=== PATIENT | female | born 1995 | race Caucasian/White ===

== ENCOUNTER 2017-12-19 14:05 | Inpatient (IN) | payer OTHER ==
[~2017-12-19] VITALS: Ht 170.2 cm; Wt 62.6 kg
[2017-12-19 14:55] LABS: ABSOLUTE BASOPHIL COUNT 0.1 /CUMM (0.0-0.2); ABSOLUTE EOSINOPHIL COUNT 0.1 /CUMM (0.0-0.7); ABSOLUTE GRANULOCYTE CT 6.7 /CUMM (1.4-6.5); ABSOLUTE MONOCYTE COUNT 0.7 /CUMM (0.10-0.60); EOSINOPHIL % 0.6 % (0-5); GRANULOCYTE % 70.1 % (42.2-75.2); HEMATOCRIT 34.6 % (37-47); MEAN CORPUSCULAR HGB 31.7 PG (27.0-31.0); MEAN CORPUSCULAR HGB CONC 33.7 G/DL (33.0-37.0); MEAN CORPUSCULAR VOLUME 93.9 FL (81.0-99.0); PLATELET COUNT 150 /CUMM (130-400); RBC DISTRIBUTION WIDTH 13.2 % (11.5-14.5); RED BLOOD CELL CT 3.69 /CUMM (4.20-5.40); WHITE BLOOD CELL COUNT 9.5 /CUMM (4.8-10.8)
[2017-12-25 08:11] VITALS: BP 128/81
[2017-12-25] MEDS ORDERED: PRENATAL TABLE1 EAC2 PO (08:13)
[2017-12-25 08:44] LABS: ABSOLUTE BASOPHIL COUNT 0.1 /CUMM (0.0-0.2); ABSOLUTE EOSINOPHIL COUNT 0.1 /CUMM (0.0-0.7); ABSOLUTE GRANULOCYTE CT 4.7 /CUMM (1.4-6.5); ABSOLUTE LYMPH COUNT 2.4 /CUMM (1.2-3.4); ABSOLUTE MONOCYTE COUNT 0.6 /CUMM (0.10-0.60); BASOPHIL % 1.4 % (0.0-2.0); EOSINOPHIL % 1.1 % (0-5); GRANULOCYTE % 59.4 % (42.2-75.2); MEAN CORPUSCULAR HGB 32.2 PG (27.0-31.0); MEAN CORPUSCULAR HGB CONC 34.8 G/DL (33.0-37.0); MEAN CORPUSCULAR VOLUME 92.6 FL (81.0-99.0); PLATELET COUNT 129 /CUMM (130-400); RBC DISTRIBUTION WIDTH 12.6 % (11.5-14.5); RED BLOOD CELL CT 3.67 /CUMM (4.20-5.40)
--- NOTE | 2017-12-25 09:50 | History & Physical ---
General Information and HPI MD Statement: I have seen and personally examined SAUL LAI and documented this H&P. The patient is a 22 year old female at [41] weeks and [1] days gestation who presented with a chief complaint of [IOL]. Source of Information: patient Exam Limitations: no limitations History of Present Illness: 22yo, 41 1/7wks, here for IOL due to postdates. she c/o occasional abdominal tightening, debies any pain or VB or LOF, reports GFM. care started at 7+ wks, uncomplicated thus far. GBS positive. Allergies/Medications Allergies: Coded Allergies: Penicillins (Intermediate, HIVES 12/19/17) gluten (ABDOMINAL PAIN 12/25/17) lactase (From [facility]) (HIVES 12/25/17) Home Med list Vit No.130/Iron/FA ( Tablet) 27 MG IRON-800 MCG TABLET 1 TAB PO DAILY (Reported) Compliance With Home Meds: GOOD Past History rn clinical coordinator History : 1 Para: 0 Last Menstrual Period: unknown Estimated Delivery Date: 12/17/2017 Past rn clinical coordinator History: none Medical History Blood Transfusion Hx: No Neurological: NONE EENT: NONE Cardiovascular: NONE Respiratory: NONE Gastrointestinal: celiac disease Hepatic: NONE Renal: NONE Musculoskeletal: NONE Psychiatric: NONE Endocrine: NONE Blood Disorders: NONE Cancer(s): NONE COMMUNICATIONS LEAD/Reproductive: NONE Surgical History Pertinent Surgical History: tonsillectomy 2012 Past Family/Social History Psychosocial History Where do you live? Home Smoking Status: Never Smoked ETOH Use: denies use Illicit Drug Use: denies illicit drug use Review of Systems Review of Systems Constitutional: Reports: no symptoms. EENTM: Reports: no symptoms. Cardiovascular: Reports: no symptoms. Respiratory: Reports: no symptoms. GI: Reports: no symptoms. Genitourinary: Reports: see HPI. Musculoskeletal: Reports: no symptoms. Skin: Reports: no symptoms. Neurological/Psychological: Reports: no symptoms. Hematologic/Endocrine: Reports: no symptoms. Immunologic/Allergic: Reports: no symptoms. All Other Systems: Reviewed and Negative Exam & Diagnostic Data Last 24 Hrs of Vital Signs/I&O Vital Signs Date Time Temp Pulse Resp B/P B/P Pulse O2 O2 Flow FiO2 Mean Ox Delivery Rate 12/25 0811 128/81 Obstetric Exam Wgt Gained During : 25lbs Pelvimetry: adequate Dilation (cm): 0 (FT) Effacement (%): 40 Station: -3 Membranes: intact Fluid: unknown Fundal Height (cm): 40 Multiple Gestation? No Contractions: occasional #1 - FHR Baseline: 130 Category: 1 Estimated Weight: 3000G Presentation: vertex Patient for Induction? Yes Jerome Score Jerome Score Response Value Cervix Position: posterior 0 Cervix Consistency: soft 2 Cervix Effacement: 30-50% 1 Cervix Dilation: closed 0 Cervix Station: -3 0 Total 3 Physical Exam: VSS General: NAD [place]: gravid, soft, nontender. Ext: DCT (-) Labs Blood Type & Rh: O positive Antibody Screen: negative Hct/Hgb & Platelets #1: 14.8/45.5%,[id number] Hct/Hgb & Platelets #2: 11/34.9%,[id number] Rubella: immune VDRL #1: negative VDRL #2: negative HbsAg: negative HIV #1: negative HIV #2 negative 1 Hr P Group B Strep: positive Initial Ultrasound: IUP at 7 3/7wks Anatomy Ultrasound: nl Ultrasound for EFW: [id number] at 36 4/7wks Genetic Testing: nl Last 24 Hrs of Labs/Steven: Laboratory Tests 12/25/17 0815: CBC w Diff NO MAN DIFF REQ, RBC 3.67 L, MCV 92.6, MCH 32.2 H, MCHC 34.8, RDW 12.6, MPV 13.0 H, Gran % 59.4, Lymphocytes % 30.1, Monocytes % 8.0, Eosinophils % 1.1, Basophils % 1.4, Absolute Granulocytes 4.7, Absolute Lymphocytes 2.4, Absolute Monocytes 0.6, Absolute Eosinophils 0.1, Absolute Basophils 0.1, Urine Color YEL, Urine Clarity HAZY H, Urine pH 7.0, Ur Specific Husser 1.015, Urine Protein NEG, Urine Ketones NEG, Urine Nitrite NEG, Urine Bilirubin NEG, Urine Urobilinogen 0.2, Ur Leukocyte Esterase LARGE H, Ur Microscopic SEDIMENT EXAMINED, Urine RBC RARE, Urine WBC 5-10 H, Ur Epithelial Cells MOD H, Urine Bacteria MOD H, Urine Hemoglobin NEG, Urine Glucose NEG Assessment/Plan Assessment/Plan: 22yo, 41 1/7wks, IOL 1. admit pt, admission labs 2. cervical ripen for IOL d/w pt, she understand and agreed. R/B/A of cytotec for cervical ripening d/w pt in detail, she understand, all questions answered, informed consent obtained. 1 dose of cytotec 25 mcg placed at 9 AM. 3. antibiotics for GBS prophylaxis when in labor. 4. will monitor closely As Ranked By This Provider Problem List: 1. 2. Post-dates Core Measures Venous Thromboembolism VTE Risk Factors / No Mechanical VTE Prophylaxis d/t LowRisk-No Interven Req'd No VTE Pharm Prophylaxis d/t LowRisk-No Interven Req'd Attending MD Review Statement Attending Statement Attending MD Statement: examined this patient, discussed with family, discussed w/nursing
--- NOTE | 2017-12-25 12:52 | PN- OBGYN ---
Surgical Brief Attending Note Brief Attending Note: pt c/o cramping pain, 4/10 scale. no other issues on TOCO: ctxs q 1-2 min, FHR cat I will defer the 2nd dose of cytotec, give IV bolus, pain management as needed, will start clindamicin for GBS prophylaxis if ctxs not space out. plan of care d/w pt, she understand and agreed.
--- NOTE | 2017-12-25 18:57 | PN- OBGYN ---
Surgical Brief Attending Note Brief Attending Note: LATE ENTRY pt c/o ctxs pain, request pain management --epidural on TOCO: ctxs every 2 minute, FHR baseline 130, moderate variability, + acels, occasional decels ( due to hyperstimulation, pt received 2 doses of terbutaline) cervix 2/80%/-1( per RN) will give epidural for pain management, anesthesia informed. will monitor closely
--- NOTE | 2017-12-25 23:48 | PN- OBGYN ---
Surgical Brief Attending Note Brief Attending Note: pt is comfortable with epidural, she received 2 doses of clindamicin on TOCO: ctxs q 2-3 min, FHR baseline 140, moderate variability, early decels cervix 8-9cm/100%/0, AROM , clear fluids will continue current management, monitor closely
--- NOTE | 2017-12-26 04:10 | Labor & Delivery Summary ---
Delivery Summary Vaginal Delivery: Vaginal: vertex Episiotomy/Lacerations: Episiotomy/Lacerations: SUPERFICIAL LEFT LABIAL Type: SUPERFICIAL LEFT LABIA Repair: 3-0 VICRYL Anesthesia: EPIDURAL Placenta: Placenta: spontanteous, normal, 3 vessel, nuchal cord (x_) (X1) Anesthesia: EPIDURAL Baby's Weight: [id number] Apgars - 1 Min: 8 Apgars - 5 Min: 8 Additional Comments: Patient fully dilated, pushed well, spontaneous delivered a viable male as cephalic presentation, EAN position, head delivered atraumatically, nuchal cord 1, reduced, followed by shoulder and rest of the body without difficulty. Baby cried and placed on mother's chest, nose and mouth suctioned with the suction bulb, cord clamped and cut. Placenta delivered spontaneously, intact, three-vessel cord. Perineum intact, superficial left labial laceration repaired with 3-0 Vicryl. Uterus massaged to firm. EBL 150 mL. Instruments laps counts were correct, patient and baby in recovery room in stable condition.
[2017-12-27 08:17] LABS: ABSOLUTE BASOPHIL COUNT 0.1 /CUMM (0.0-0.2); ABSOLUTE EOSINOPHIL COUNT 0.2 /CUMM (0.0-0.7); ABSOLUTE GRANULOCYTE CT 7.9 /CUMM (1.4-6.5); ABSOLUTE LYMPH COUNT 2.6 /CUMM (1.2-3.4); ABSOLUTE MONOCYTE COUNT 0.7 /CUMM (0.10-0.60); BASOPHIL % 0.4 % (0.0-2.0); EOSINOPHIL % 1.4 % (0-5); GRANULOCYTE % 69.1 % (42.2-75.2); HEMATOCRIT 31.8 % (37-47); MEAN CORPUSCULAR HGB 32.3 PG (27.0-31.0); MEAN CORPUSCULAR HGB CONC 34.1 G/DL (33.0-37.0); MEAN CORPUSCULAR VOLUME 94.7 FL (81.0-99.0); MEAN PLATELET VOLUME 12.6 FL (7.4-10.4); PLATELET COUNT 111 /CUMM (130-400); RBC DISTRIBUTION WIDTH 13.1 % (11.5-14.5); RED BLOOD CELL CT 3.35 /CUMM (4.20-5.40); WHITE BLOOD CELL COUNT 11.5 /CUMM (4.8-10.8)
--- NOTE | 2017-12-27 09:21 | PN- Post Delivery/GYN ---
Subjective Subjective: doing well, no complaints, tolerate diet, void without difficulties, ambulating well Review of Systems Constitutional: Reports: no symptoms. EENTM: Reports: no symptoms. Cardiovascular: Reports: no symptoms. Respiratory: Reports: no symptoms. Gastrointestinal: Reports: no symptoms. Genitourinary: Reports: see HPI. Musculoskeletal: Reports: no symptoms. All Other Systems: Reviewed and Negative Objective Last 24 Hrs of Vital Signs/I&O see chart Physical Exam: VSS General: NAD CV RRR lungs CTA B/L Abdomen: soft, nontender, uterus firm, fundus below umbilicus, lochia mild Ext: DCT (-) Current Medications: Current Medications Sig/Chicho Start time Last Medication Dose Route Stop Time Status Admin Acetaminophen 650 MG Q4P PRN 12/26 0415 AC PO Docusate Sodium 100 MG BID PRN 12/265 AC PO Ibuprofen 800 MG Q6P PRN 12/26 0415 AC 12/27 PO 0608 Oxycodone/ 1 TAB Q3P PRN 12/265 AC Acetaminophen PO Last 24 Hrs of Labs/Steven: Laboratory Tests 12/27/17 0605: CBC w Diff NO MAN DIFF REQ, RBC 3.35 L, MCV 94.7, MCH 32.3 H, MCHC 34.1, RDW 13.1, MPV 12.6 H, Gran % 69.1, Lymphocytes % 22.7, Monocytes % 6.4, Eosinophils % 1.4, Basophils % 0.4, Absolute Granulocytes 7.9 H, Absolute Lymphocytes 2.6, Absolute Monocytes 0.7 H, Absolute Eosinophils 0.2, Absolute Basophils 0.1 Assessment/Plan Assessment/Plan 22yo, s/p ,PPD#1 1. encourage ambulation and 2. RT PP care
[2017-12-28] MEDS ORDERED: IBUPROFEN800 M1 PO (09:59)
--- NOTE | 2017-12-28 10:02 | PN- Post Delivery/GYN ---
Subjective Subjective: feeling well Review of Systems Constitutional: Denies: chills, fever. EENTM: Denies: blurred vision, double vision, visual changes. Cardiovascular: Denies: chest pain. Respiratory: Denies: cough. Gastrointestinal: Denies: diarrhea, nausea, vomiting. Neurological/Psychological: Denies: anxiety, depressed. Objective Last 24 Hrs of Vital Signs/I&O vss Physical Exam General Appearance Alert, Oriented X3, Cooperative, No Acute Distress Cardiovascular Regular Rate Lungs Clear to Auscultation Abdomen Soft, No Tenderness, fundus firm Pelvic (FEMALE) lochia serosanganous Current Medications: Current Medications Sig/Chicho Start time Last Medication Dose Route Stop Time Status Admin Acetaminophen 650 MG .STK-MED ONE 12/27 2322 DC PO 12/27 2323 Acetaminophen 650 MG Q4P PRN 12/26 0415 AC 12/27 PO 2323 Docusate Sodium 100 MG .STK-MED ONE 12/27 1904 DC PO 12/27 1905 Docusate Sodium 100 MG BID PRN 12/26 0415 AC 12/27 PO 1911 Ibuprofen 800 MG .STK-MED ONE 12/27 1903 DC PO 12/27 1904 Ibuprofen 800 MG .STK-MED ONE 12/27 1331 DC PO 12/27 1332 Ibuprofen 800 MG Q6P PRN 12/26 0415 AC 12/28 PO 0522 Oxycodone/ 1 TAB Q3P PRN 12/26 0415 AC Acetaminophen PO Assessment/Plan Assessment/Plan ppd #2 vss afebrile plan d/c home Problem List: 1. Post-dates Attending MD Review Statement Attending Statement Attending MD Statement: examined this patient, discussed with family, discussed with nursing
== END 2017-12-28 11:55 | DRG 775 ==
LOC: CBCO 14:05 → GNO 12-25 07:58
PROVIDERS: Obstetrics & Gynecology
PROC: 0HQ9XZZ Repair Perineum Skin, External Approach (ICD-10-PCS; principal; 2017-12-26)
PROC: 10E0XZZ Delivery of Products of Conception, External Approach (ICD-10-PCS; principal; 2017-12-26)
PROC: 3E033VJ Introduction of Other Hormone into Peripheral Vein, Percutaneous Approach (ICD-10-PCS; 2017-12-26)
DX: O48.0 Post-term pregnancy (principal); O70.0 First degree perineal laceration during delivery; O76 Abnormality in fetal heart rate and rhythm complicating labor and delivery; K90.0 Celiac disease; O69.81X0 Labor and delivery complicated by cord around neck, without compression, not applicable or unspecified; Z37.0 Single live birth; Z3A.41 41 weeks gestation of pregnancy; O99.62 Diseases of the digestive system complicating childbirth; Z90.89 Acquired absence of other organs; Z91.018 Allergy to other foods; Z88.0 Allergy status to penicillin; Z91.011 Allergy to milk products
CPT/HCPCS: GNOP; GNOS; 36415; 81001; 82570; 87086; 96360; 96361; G0463; J7120